=== PATIENT | female | born 1940 | race Caucasian/White ===

== ENCOUNTER 2017-12-16 22:13 | Emergency (ER) | payer OTHER, MEDICARE, BC ==
[2017-12-16 22:26] VITALS: BP 143/65; PULSE 78; RESP 16; TEMP 97.6; O2SAT 96
[2017-12-16] MEDS ORDERED: METO50TA PO (22:26)
[2017-12-16] MEDS ORDERED: ASPI-516 CHEW (22:26)
[2017-12-16] MEDS ORDERED: OMEGCAP PO (22:26)
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
[2017-12-16] MEDS ORDERED: ONDANSETRON ODT 4 MG TAB PO ONE (22:30)
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
[2017-12-16] MEDS ORDERED: CYCL10TA PO (23:16)
[2017-12-16] MEDS ORDERED: NAPR375T4 PO (23:16)
[2017-12-16 23:41] VITALS: BP 130/66
== END 2017-12-16 23:48 | disposition home or self-care (01) ==
LOC: EDBD 22:13 → PHED 22:13
DX: G44.209 Tension-type headache, unspecified, not intractable (principal); S13.9XXA Sprain of joints and ligaments of unspecified parts of neck, initial encounter; R11.0 Nausea; V89.2XXA Person injured in unspecified motor-vehicle accident, traffic, initial encounter
CPT/HCPCS: 70450; 72040; 99283